=== PATIENT | female | born 1975 | race Caucasian/White ===

== ENCOUNTER → 2016-12-22 | Outpatient (CLI) | payer MEDICAID ==
[~2016-12-22] MED LIST: ABILIFY20 MG PO; ACYCLOVIR800 MG PO; ALBUTEROL2 PUFFS/17 IN; BACTRIM DS 8001 TA1 PO; BENTYL10 MG PO; CARVEDILOL3.125 MG PO; CARVEDILOL6.25 M1 PO; CARVEDILOL6.25 MG PO; DOXYCYCLINE HY100 M3 PO; DOXYCYCLINE HY100 M4 PO; HYDROCODONE-APA1 TA1 PO; LISINOPRIL AND1 TAB PO; MEDROL 4MG. DOSE4 MG PO; METRONIDAZOLE500 MG PO; NAPROSYN 500MG500 MG PO; NICOTINE PATCH;21 MG TD; NOMEDS XX; PHENERGAN 25MG.25 M1 PO; TRAMADOL 50MG T50 M1 PO; VISTARIL25 M1 PO; ZOLOFT 50MG TAB50 MG PO
[2016-12-22 18:19] LABS: HEMOGLOBIN 16.7 g/dL (12.2-16.2); LYMPH # 3.7 K/mm3 (0.7-4.5); LYMPH % 39.3 % (10-50.0)
[2016-12-22 21:17] LABS: BUN 10 mg/dL (7-18); GFR (ESTIMATED) 92 ML/MIN (59-)
[2016-12-24 09:42] LABS: RA Latex Turbid. <10.0 IU/mL (0.0-13.9)
[2016-12-24 18:36] LABS: Antinuclear Antibodies, IFA Negative (.)
== END ==
LOC: LAB 16:47
PROVIDERS: Emergency Medicine
DX: Z00.00 Encounter for general adult medical examination without abnormal findings (principal)

== ENCOUNTER → 2017-08-18 | Outpatient (CLI) | payer MEDICAID ==
--- NOTE | 2017-08-18 13:47 | RADIOLOGY REPORT PS360 ---
ARTERIAL/[id number] NUMBNESS LEGS CLAUDICATION, rest pain, claudication, numbness in feet ORDERING PHYSICIAN: Rico Barcenas MD PATIENT AGE: 42 years TECHNIQUE: Segmental pressures obtained of both right and left leg. These are compared to brachial blood pressure to yield index at each level sampled including summary TAINA. The data sheets from the procedure are available in PACS FINDINGS Rest study only performed today No prior studies available for comparison. Blood pressures reported are in millimeters mercury. RIGHT LEG TAINA = 1.1. Brachial BP: 132 Thigh BP: 119 Calf BP: 138 Ankle PT: 150 Ankle DP : 138 Digit =108 LEFT LEG TAINA = 1.1 Brachial BPD: 124 Thigh BP: 164 Calf BP: 146 Ankle PT:141 Ankle DP: 139 Digit = 106 Pulses and waveforms: Normal IMPRESSION: The ABIs as reported above are within normal limits. Waveforms and pulses are also unremarkable.
== END ==
LOC: RT 11:06
DX: R20.0 Anesthesia of skin (principal)

== ENCOUNTER → 2017-08-26 | Outpatient (CLI) | payer MEDICAID ==
[2017-08-26 13:50] LABS: HEMOGLOBIN 17.5 g/dL (12.2-16.2); LYMPH # 3.8 K/mm3 (0.7-4.5); LYMPH % 38.7 % (10-50.0)
[2017-08-26 14:11] LABS: BUN 6 mg/dL (7-18)
[2017-08-26 14:13] LABS: GFR (ESTIMATED) 78 ML/MIN (59-)
[2017-08-27 06:41] LABS: HBsAg Screen Negative (Negative); Hep A Ab, IgM Negative (Negative); Hep B Core Ab, IgM Negative (Negative); Hep C Virus Ab <0.1 (0.0-0.9)
[2017-08-27 08:39] LABS: Vitamin D, 25-Hydroxy 13.7 ng/mL (30.0-100.0)
== END ==
LOC: LAB 13:25
PROVIDERS: Emergency Medicine
DX: R53.1 Weakness (principal); N39.0 Urinary tract infection, site not specified; E55.9 Vitamin D deficiency, unspecified; Z79.899 Other long term (current) drug therapy